=== PATIENT | female | born 1950 | race Caucasian/White ===

== ENCOUNTER 2016-11-18 02:16 | Emergency (ER) | payer OTHER ==
[~2016-11-18] VITALS: Ht 170.2 cm; Wt 78.0 kg
[~2016-11-18 02:16] MED LIST: ATOR10TA PO; BACL10TA PO; BIOT10TA PO; HYDR10SO PO; MULT-65 PO; OMEG100037 PO; OMEP20TA39 PO; OSTETAB7 PO; RANI150 PO; REST15CA PO; SERT-129 PO; TRAZ50TA4 PO
[2016-11-18 02:23] VITALS: BP 138/91; PULSE 63; RESP 18; TEMP 98; O2SAT 96
--- NOTE | 2016-11-18 02:44 | PD ---
HPI Chief Complaint: Complaint Time Seen by Provider: 02:35 Travel History International Travel<30 days: Yes Contact w/Intl Traveler<30days: [place] Traveled to: [facility] Traveled to known affect area: No History of Present Illness HPI 66yo F with PMH of chronic back pain presents to the ED with c/o dysuria and increased urinary frequency since yesterday. States she had bladder infection before and this feels similar. Denies any fever, chest pain, sob, n/v, weakness , numbness, hematuria, vaginal bleeding or discharge. Pt states there is some suprapubic discomfort. PFSH Past Medical History Anxiety: Yes High Cholesterol: Yes Diminished Hearing: No Fibromyalgia: Yes GERD: Yes Musculoskeletal: Yes (BACK PAIN) Immunizations Current: Yes Menopausal: Yes : 0 Para: 0 Past Surgical History Genitourinary Surgery: Yes (BLADDER TACT 2006) Oral Surgery: Yes (esphogeal stricture) Social History Alcohol Use: No Tobacco Use: No Substance Use: No Allergies-Medications (Allergen,Severity, Reaction): Coded Allergies: Cymbalta (Unverified Allergy, Severe, Edema, 10/26/14) Flu Vaccine (Verified Allergy, Severe, hot red skin itching, 10/26/14) Penicillin (Verified Allergy, Severe, HIVES, 10/26/14) Reported Meds & Prescriptions Reported Meds & Active Scripts Active Acetaminophen Extra Strength (Acetaminophen) 500 Mg Tab 500 Mg PO Q6H PRN Bactrim DS (Sulfamethoxazole-Trimethoprim) 800-160 Mg Tab 1 Tab PO BID Zantac (Ranitidine HCl) 150 Mg Tab 150 Mg PO BID Reported Restoril (Temazepam) 15 Mg Cap 15 Mg PO HS Hm Omeprazole (Omeprazole) 20 Mg Tab 40 Mg PO DAILY Biotin 10 Mg Tab 10 Mg PO DAILY Hydrocodone/Acetaminophen (Miscellaneous Medication) 1 Tab 1 Tab PO BID Osteo Bi-Flex Joint Shiel (Misc Natural Products) Jnt Shld Tab 1 Tab PO DAILY Fish Oil 1000 mg ([place]-3 Fatty Acids) 1 Cap Cap 1 Cap PO DAILY Trazodone Hcl (Trazodone HCl) 50 Mg Tab 50 Mg PO HS Sertraline 100 mg (Sertraline HCl) 100 Mg Tab 1 Tab PO DAILY Multi-Vitamin Daily (Multivitamins) Daily Tab 1 Tab PO DAILY Atorvastatin 10 mg (Atorvastatin Calcium) 10 Mg Tab 10 Mg PO HS 30 Days Lioresal (Baclofen) 10 Mg Tab 10 Mg PO TID Review of Systems Except as stated in HPI: all other systems reviewed are Neg Physical Exam Narrative GENERAL: 66yo F not in distress. SKIN: Focused skin assessment warm/dry. HEAD: Atraumatic. Normocephalic. EYES: Pupils equal and round. No scleral icterus. No injection or drainage. ENT: No nasal bleeding or discharge. Mucous membranes pink and moist. NECK: Trachea midline. No JVD. CARDIOVASCULAR: Regular rate and rhythm. No murmur appreciated. RESPIRATORY: No accessory muscle use. Clear to auscultation. Breath sounds equal bilaterally. GASTROINTESTINAL: Abdomen soft, +Mild suprapubic ttp. No tenderness to LUQ, LLQ , RUQ or RLQ. No rebound tenderness or guarding. BACK: No CVA tenderness bilaterally. MUSCULOSKELETAL: No obvious deformities. No clubbing. No cyanosis. No edema. NEUROLOGICAL: Awake and alert. No obvious cranial nerve deficits. Motor grossly within normal limits. Normal speech. PSYCHIATRIC: Appropriate mood and affect; insight and judgment normal. Data Data Last Documented VS Vital Signs Date Time Temp Pulse Resp B/P Pulse Ox O2 Delivery O2 Flow Rate FiO2 11/18/16 02:23 98.0 63 18 138/91 96 Orders Urinalysis - C+S If Indicated (11/18/16 02:39) Urine Culture (11/18/16 02:45) Sulfamet-Trimeth Ds 800-160 Mg (Bactrim (11/18/16 03:15) Acetaminophen (Tylenol) (11/18/16 03:15) Labs Laboratory Tests Test 11/18/16 02:45 Urine Color YELLOW Urine Turbidity MOD Urine pH 6.5 Urine Specific [place] 1.013 Urine Protein 30 mg/dL Urine Glucose (UA) NEG mg/dL Urine Ketones NEG mg/dL Urine Occult Blood LARGE Urine Nitrite NEG Urine Bilirubin NEG Urine Leukocyte Esterase LARGE Urine RBC INNUM /hpf Urine WBC INNUM /hpf Urine WBC Clumps MOD Urine Squamous Epithelial 0-5 /hpf Cells Urine Bacteria OCC /hpf Urine Mucus OCC /lpf Microscopic Urinalysis Comment CULTURE INDICATED MDM Medical Decision Making Medical Screen Exam Complete: Yes Emergency Medical Condition: Yes Interpretation(s) Laboratory Tests Test 11/18/16 02:45 Urine Color YELLOW (YELLW/STRAW) Urine Turbidity MOD (CLEAR) Urine pH 6.5 (5.0-8.5) Urine Specific [place] 1.013 (1.002-1.035) Urine Protein 30 mg/dL (NEG-TRACE) Urine Glucose (UA) NEG mg/dL (NEG) Urine Ketones NEG mg/dL (NEG) Urine Occult Blood LARGE (NEG) Urine Nitrite NEG (NEG) Urine Bilirubin NEG (NEG) Urine Leukocyte Esterase LARGE (NEG) Urine RBC INNUM /hpf (0-3) Urine WBC INNUM /hpf (0-5) Urine WBC Clumps MOD (NONE) Urine Squamous Epithelial 0-5 /hpf (0-5) Cells Urine Bacteria OCC /hpf (NONE) Urine Mucus OCC /lpf (OCC) Microscopic Urinalysis Comment CULTURE INDICATED Differential Diagnosis Cystitis vs. UTI Narrative Course 66yo F with dysuria and urinary frequency for 1 day. Pt is well appearing with normal vital signs. No systemic symptoms. Will check UA. UA showed large leukocyte. Moderate WBC clumps. Pt given first dose of bactrim here. Pt has lortab for chronic back pain and does not want anything for pain now. States it does not really hurt. Return precautions given. Diagnosis Primary Impression: UTI (urinary tract infection) Qualified Code: N30.01 - Acute cystitis with hematuria Patient Instructions: General Instructions Departure Forms: Tests/Procedures Additional Instructions: Please follow up with your PMD in 3-7 days. Return to the ED if symptoms worsen. Med/Other Pt SpecificInfo: Prescription(s) given Scripts Sulfamethoxazole-Trimethoprim (Bactrim DS)800-160 Mg Tab1 Tab PO BID #20 TAB Ref 0 Prov:Mihcelle Del Real DO 11/18/16 Michelle Del Real DO November 18, 2016 02:44
[2016-11-18 02:51] LABS: BLOOD, URINE LARGE (NEG); GLUCOSE,URINE NEG (NEG); KETONE, URINE NEG (NEG); NITRITE,URINE NEG (NEG); PH, URINE 6.5 (5.0-8.5)
[2016-11-18 02:58] LABS: RBC, URINE INNUM /hpf (0-3); URINE COLOR YELLOW (YELLW/STRAW); WBC, URINE INNUM /hpf (0-5)
[2016-11-18 02:59] LABS: MUCUS URINE OCC /lpf (OCC); SQUAMOUS EPITHELIAL CELL URINE 0-5 /hpf (0-5)
[2016-11-18 03:00] LABS: BACTERIA, URINE OCC /hpf
[2016-11-18 03:01] LABS: COMMENT (UR) CULTURE INDICATED; CULTURE IF INDICATED CULTURE INDICATED
[2016-11-18] MEDS ORDERED: SULFAMETHOXAZOLE-TRIMETHOPRIM DS 800-160 MG TAB PO ONE (03:15)
[2016-11-18] MEDS ORDERED: ACETAMINOPHEN 500 MG CPLT PO ONE (03:15)
[2016-11-18] MEDS ORDERED: BACT800T5 PO (03:15)
[2016-11-18] MEDS ORDERED: ACET500T36 PO (03:15)
== END 2016-11-18 03:29 | disposition home or self-care (01) ==
LOC: PHED 02:16
DX: N30.01 Acute cystitis with hematuria (principal); B96.20 Unspecified Escherichia coli [E. coli] as the cause of diseases classified elsewhere
CPT/HCPCS: 81001; 87077; 87086; 87186; 99283